=== PATIENT | female | born 1980 | race Caucasian/White ===

== ENCOUNTER 2021-10-04 05:48 | Emergency (ER) | payer MEDICAID ==
[~2021-10-04] VITALS: Ht 167.6 cm; Wt 63.5 kg
[2021-10-04 05:48] VITALS: BP_SYST 98
--- NOTE | 2021-10-04 05:48 | NUR ---
Patient triaged and placed in waiting room. VSS and patient appears in no acute distress at this time. Accompanied by SELF, awaiting available bed, and MD notified of need for MSE.
--- NOTE | 2021-10-04 06:05 | NUR ---
PT STATES THAT SHE AWOKE THIS AM WITH AN PAIN IN LEFT EAR. STATES PAIN IS A 10/10
--- NOTE | 2021-10-04 06:07 | NUR ---
DR RAJPUT AT BEDSIDE FOR EVALUATION
[2021-10-04] MEDS ORDERED: CORTEARS LEFT EAR (06:19)
[2021-10-04] MEDS ORDERED: AMOX500C2 PO (06:19)
[2021-10-04] MEDS ORDERED: HYDR-3917 PO (06:19)
--- NOTE | 2021-10-04 06:48 | NUR ---
Patient given written and verbal discharge instructions and verbalizes understanding. ER MD discussed with patient the results and treatment provided. Patient in stable condition. ID arm band removed. Rx of AMOXICILLIN, CORTISPORIN, NORCO given. Patient educated on pain management and to follow up with PMD. Pain Scale 0/10. Opportunity for questions provided and answered. Medication side effect fact sheet provided.
== END 2021-10-04 06:48 | disposition home or self-care (01) ==
LOC: SED 05:48
DX: H66.92 Otitis media, unspecified, left ear (principal); Z88.5 Allergy status to narcotic agent; Z79.899 Other long term (current) drug therapy
CPT/HCPCS: 99283

== ENCOUNTER 2021-12-09 07:39 | Emergency (ER) | payer MEDICAID, SELFPAY ==
[~2021-12-09] VITALS: Ht 170.2 cm; Wt 63.5 kg
[~2021-12-09 07:39] MED LIST: AMOX500C2 PO; CORTEARS LEFT EAR; HYDR-3917 PO
[2021-12-09 07:45] VITALS: BP_SYST 97
--- NOTE | 2021-12-09 08:01 | NUR ---
Patient to ER bed tent1 to gown for evaluation. Side rails up.
--- NOTE | 2021-12-09 08:05 | NUR ---
Pt prsents to ED w/ COVID symptoms
[2021-12-09] MEDS ORDERED: ACETAMINOPHEN 650 MG/20.3 ML UDC PO ONE (08:15)
--- NOTE | 2021-12-09 08:15 | NUR ---
INGE Menard at bedside examining patient.
[2021-12-09 09:59] VITALS: BP_SYST 97
--- NOTE | 2021-12-09 09:59 | NUR ---
Patient given written and verbal discharge instructions and verbalizes understanding. ER MD discussed with patient the results and treatment provided. Patient in stable condition. ID arm band removed. no Rx of given. Patient educated on pain management and to follow up with PMD. Pain Scale 3. Opportunity for questions provided and answered. Medication side effect fact sheet provided.
== END 2021-12-09 09:59 | disposition home or self-care (01) ==
LOC: SED 07:39
DX: U07.1 COVID-19 (principal); Z88.5 Allergy status to narcotic agent; Z88.1 Allergy status to other antibiotic agents; Z79.899 Other long term (current) drug therapy
CPT/HCPCS: 99283; C9803; U0003

== ENCOUNTER 2022-06-25 21:49 | Emergency (ER) | payer MEDICAID ==
[~2022-06-25] VITALS: Ht 167.6 cm; Wt 61.2 kg
[2022-06-25 22:34] VITALS: BP_SYST 91
--- NOTE | 2022-06-25 22:42 | NUR ---
PT FROM HOME WITH C/O PAIN TO THE RIGHT FOOT 05/28. PT STATED SHE HIT THE FOOT ON DOOR FRAME AND HEARD A CRACK. PAIN MOSTLY WITHIN LAST 3 TOES. PT HAS EXTENSIVE SX HISTORY SEE TRIAGE ASSESMENT. PT ABLE TO AMUBLATE WITH ASSITANCE AND SENSATION IN TACT. PT HAS SCREWS PLACED IN RIGHT ANKLE FROM PERVIOUS INJURY.
--- NOTE | 2022-06-25 22:45 | NUR ---
PT PLACED IN WAITING ROOM.
--- NOTE | 2022-06-25 23:44 | NUR ---
GILBERT WRAP APPLIED TO RIGHT ANKLE. PMS PRESENT AFTER APPLICATION
--- NOTE | 2022-06-25 23:44 | NUR ---
Dr. Monae with patient in [facility].
[2022-06-25 23:51] VITALS: BP_SYST 91
--- NOTE | 2022-06-25 23:51 | NUR ---
Patient given written and verbal discharge instructions and verbalizes understanding. ER Dr. Monae discussed with patient the results and treatment provided. Patient in stable condition. ID arm band removed. Patient educated on pain management and to follow up with PMD. Pain Scale 3. Opportunity for questions provided and answered. Medication side effect fact sheet provided.
== END 2022-06-25 23:51 | disposition home or self-care (01) ==
LOC: SED 21:49
DX: S90.31XA Contusion of right foot, initial encounter (principal); M79.671 Pain in right foot; Z79.899 Other long term (current) drug therapy; W52.XXXA Crushed, pushed or stepped on by crowd or human stampede, initial encounter; Y93.89 Activity, other specified; Y92.89 Other specified places as the place of occurrence of the external cause; Y99.8 Other external cause status
CPT/HCPCS: 99283

== ENCOUNTER 2022-07-03 22:14 | Emergency (ER) | payer MEDICAID ==
[~2022-07-03] VITALS: Ht 167.6 cm; Wt 61.2 kg
[2022-07-03 22:48] VITALS: BP_SYST 108
--- NOTE | 2022-07-03 23:03 | NUR ---
PT IS AA&OX4. NAD, AFEBRILE, C/O 8/10 PAIN ON R 4TH TOE. PT IS AMBULATORY W/ STEADY GAIT.
--- NOTE | 2022-07-03 23:21 | NUR ---
ER at bedside examining patient.
[2022-07-04] MEDS ORDERED: CEPH250C PO (00:09)
--- NOTE | 2022-07-04 00:18 | NUR ---
POST OP SHOE APPLIED TO PATIENT'S RIGHT FOOT.
--- NOTE | 2022-07-04 00:27 | NUR ---
PT IS CLEARED BY FOR D/C. PT IS IN STABLE CONDITION. D/C EDUC & RX PROVIDED. PT VERBALIZED UNDERSTANDING. ABLE TO AMBULATE W/ STEADY GAIT.
[2022-07-04 01:31] VITALS: BP_SYST 122
== END 2022-07-04 00:17 | disposition home or self-care (01) ==
LOC: SED 22:14
DX: S92.511A Displaced fracture of proximal phalanx of right lesser toe(s), initial encounter for closed fracture (principal); L03.031 Cellulitis of right toe; Z88.1 Allergy status to other antibiotic agents; Z88.5 Allergy status to narcotic agent; Z88.6 Allergy status to analgesic agent; Z88.8 Allergy status to other drugs, medicaments and biological substances; Z79.899 Other long term (current) drug therapy; W22.8XXA Striking against or struck by other objects, initial encounter; Y93.89 Activity, other specified; Y92.89 Other specified places as the place of occurrence of the external cause; Y99.8 Other external cause status
CPT/HCPCS: 99283

== ENCOUNTER 2023-02-24 11:15 | Emergency (ER) | payer MEDICAID ==
[~2023-02-24] VITALS: Ht 167.6 cm; Wt 63.5 kg
[~2023-02-24 11:15] MED LIST changes: +CEPH250C PO
[2023-02-24 11:27] VITALS: BP_SYST 100
--- NOTE | 2023-02-24 11:30 | NUR ---
ER DR. TAYLOR EXAMINING PT IN TRIAGE
--- NOTE | 2023-02-24 11:35 | NUR ---
Pt brought by self, A&Ox4, pt presents to ER with R hand pain/ swelling after punching the wall 2 days ago, VSS, denies other injuries, will cont to monitor.
--- NOTE | 2023-02-24 12:55 | NUR ---
Patient given written and verbal discharge instructions and verbalizes understanding. ER MD discussed with patient the results and treatment provided. Patient in stable condition. ID arm band removed. NO Rx given. Patient educated on pain management and to follow up with PMD. Pain Scale 0/10. Opportunity for questions provided and answered. Medication side effect fact sheet provided.
[2023-02-24 12:56] VITALS: BP_SYST 111
== END 2023-02-24 13:28 | disposition home or self-care (01) ==
LOC: SED 11:15
DX: S62.336A Displaced fracture of neck of fifth metacarpal bone, right hand, initial encounter for closed fracture (principal); Z88.1 Allergy status to other antibiotic agents; Z88.5 Allergy status to narcotic agent; Z88.6 Allergy status to analgesic agent; Z88.8 Allergy status to other drugs, medicaments and biological substances; Z79.899 Other long term (current) drug therapy; W22.09XA Striking against other stationary object, initial encounter; Y93.89 Activity, other specified; Y92.89 Other specified places as the place of occurrence of the external cause; Y99.8 Other external cause status
CPT/HCPCS: 99283